=== PATIENT | male | born 1935 | race Caucasian/White ===

== ENCOUNTER 2020-09-25 13:49 | Inpatient (IN) ==
[2020-09-25] MEDS ORDERED: IOPAMIDOL 100 ML BOTTLE IV ONE (13:50)
--- NOTE | 2020-09-25 14:17 | Emergency Department Note ---
Abdominal Pain HPI General Chief Complaint: Abdominal Pain Stated Complaint: right abdominal pain Time Seen by Provider: 09/25/20 14:16 Source: patient Mode of arrival: wheelchair Limitations: no limitations History of Present Illness HPI Narrative: Narrative: Patient is an 84-year-old male with history of prior coronary artery bypass grafting and stenting as well as history of bowel obstruction who presents compl aint of right-sided abdominal pain which is persistent without any relieving or exacerbating factors. He has felt some nausea but no vomiting. He denies any trauma to the abdomen. He is extremely uncomfortable with the severe pain. He notes chronic back pain without any new back pain. He has been taking his medications including Plavix consistently. No complaint of any new pain or swelling to his legs which she notes are with some mild edema. No skin rash no fever. He was concerned maybe it was something that he had eaten, but no one else with similar symptoms. No recent travel no fever no cough. Related Data Allergies Allergy/AdvReac Type Severity Reaction Status Date / Time No Known Drug Allergies Allergy Verified 09/25/20 13:54 Review of Systems ROS ROS Narrative: Narrative: A 10 system review of systems was performed and found to be negative except as outlined above. [facility] Narrative Patient History Narrative: Narrative: Medical/Surgical/Family History All Active Problems (Updated 09/25/20 @ 19:10 by Clinton Myers MD) Acute cholecystitis (Acute) Social History Smoking Status: Former smoker Exam Narrative Narrative: Narrative: General: Alert, uncomfortable appearing male who is hard of hearing. He is speaking 8-10 word sentences without apparent dyspnea HEENT: NCAT, PERRL, Oral pharynx with moist mucus membranes. No pharyngeal erythema. No conjunctival pallor Neck: Supple, No lymphadenopathy Chest: Stable, well-healed sternotomy incision Heart: Regular rate and rhythm without murmur Lungs: Clear to auscultation bilaterally Abdomen: Soft, nondistended, with right mid and upper abdominal tenderness to palpation. No rebound tenderness. He has prior laparotomy scar which is well-healed. : No bladder distention Back: Nontraumatic, No CVA tenderness to palpation. Skin: No rash or lesion Extremity: No cyanosis, there is 1+ bilateral lower extremity edema, pulses 2+ radial Neurologic: Moves all extremities in appropriate coordinated fashion. General Limitations: no limitations Course Vital Signs Vital signs: Vital Signs Temperature 98.2 F 09/25/20 13:51 Pulse Rate 79 09/25/20 13:51 Respiratory Rate 18 09/25/20 13:51 Blood Pressure 153/80 09/25/20 13:51 Pulse Oximetry (%) 92 09/25/20 13:51 Temperature 98.2 F 09/25/20 13:51 Pulse Rate 85 09/25/20 17:31 Respiratory Rate 14 09/25/20 17:31 Blood Pressure 150/71 09/25/20 17:31 Pulse Oximetry (%) 97 09/25/20 17:31 MDM MDM Narrative Medical decision making narrative: Narrative: Patient presents with right upper quadrant abdominal pain but is with history significant for cardiac disease. His exam pointed more to intra-abdominal process but given his cardiac history I wanted to further evaluate potential of heart disease. Patient's ECG was without definite STEMI but did have some nonspecific changes and it was relieving to note his troponin was negative. I have asked for but have not been able to locate any prior ECGs to confirm chronic changes. His ECG time 1420 demonstrates sinus rhythm at a rate of 68. QRS axis is normal QRS duration is normal and narrow. There was some sinusoidal T waves in the precordial leads and T wave inversions are flattening in the lateral leads. Ultimately, patient's CT scan confirmed evidence of acute cholecystitis with gallbladder wall thickening and surrounding inflammation. There was no common bile duct dilation noted. I have spoken to Dr. Facundo Hannon who is kindly agreed to accept the patient for further admission with planned operative evaluation tomorrow. Patient is treated with Dilaudid with improvement in his pain but was requiring repeat doses of Dilaudid for comfort. No evidence of ischemic bowel, appendicitis, bowel perforation, diverticulitis or other intra-abdominal cause. Chest x-ray without acute cardiopulmonary process but evidence of prior bypass surgery. Lab Data Result diagrams: 09/25/20 15:02 09/25/20 15:02 Labs: Lab Results 09/25/20 09/25/20 09/25/20 Range/Units 15:02 15: 15: WBC 16.4 H (4.5-11.0) K/mcL RBC 5.20 (4.50-5.90) M/mcL Hgb 14.9 (13.5-16.5) g/dL Hct 46.4 (41.0-55.0) % MCV 89.2 (80.0-100.0) fL MCH 28.7 (26.0-34.0) pg MCHC 32.1 (31.0-36.0) g/dL RDW 15.5 H (11.5-14.5) % Plt Count 210 (140-440) K/mcL MPV 10.7 H (7.4-10.4) fL Neut % (Auto) 79.1 H (38.0-78.0) % Lymph % (Auto) 10.4 L (15.0-49.0) % [place] % (Auto) 10.1 (1.0-12.0) % Eos % (Auto) 0.2 (0.0-7.0) % Baso % (Auto) 0.2 (0.0-2.0) % Lymph # (Auto) 1.70 (1.50-4.80) K/mcL [place] # (Auto) 1.66 H (0.10-0.90) K/mcL Eos # (Auto) 0.04 (0.00-0.70) K/mcL Baso # (Auto) 0.04 (0.00-0.20) K/mcL Absolute Neutrophils 12.96 H (1.80-8.00) K/mcL PT 14.6 H (11.9-14.5) sec INR 1.1 (0.9-1.1) VBG Lactic Acid (0.5-2.0) mmol/L Sodium 136 (133-145) mmol/L Potassium 4.0 (3.3-5.1) mmol/L Chloride 100 (96-108) mmol/L Carbon Dioxide 25 (22-30) mmol/L Anion Gap 11.0 (8.0-16.0) BUN 8 (8-23) mg/dL Creatinine 1.0 (0.7-1.2) mg/dL POC Creatinine (0.6-1.2) mg/dL GFR Calculation 69 Glucose 155 H (70-105) mg/dL Calcium 8.8 (8.6-10.4) mg/dL Total Bilirubin 0.4 (0.1-1.0) mg/dL AST 17 (<40) U/L ALT 11 (<40) U/L Alkaline Phosphatase 80 (39-117) U/L Troponin T (<0.03) ng/mL Total Protein 7.1 (5.9-8.4) gm/dL Albumin 3.8 (3.2-5.2) gm/dL Globulin 3.3 (2.2-3.7) gm/dL Albumin/Globulin Ratio 1.2 (1.0-2.3) Lipase 20 (7-60) U/L 09/25/20 09/25/20 09/25/20 Range/Units 15:02 15:25 15:25 WBC (4.5-11.0) K/mcL RBC (4.50-5.90) M/mcL Hgb (13.5-16.5) g/dL Hct (41.0-55.0) % MCV (80.0-100.0) fL MCH (26.0-34.0) pg MCHC (31.0-36.0) g/dL RDW (11.5-14.5) % Plt Count (140-440) K/mcL MPV (7.4-10.4) fL Neut % (Auto) (38.0-78.0) % Lymph % (Auto) (15.0-49.0) % [place] % (Auto) (1.0-12.0) % Eos % (Auto) (0.0-7.0) % Baso % (Auto) (0.0-2.0) % Lymph # (Auto) (1.50-4.80) K/mcL [place] # (Auto) (0.10-0.90) K/mcL Eos # (Auto) (0.00-0.70) K/mcL Baso # (Auto) (0.00-0.20) K/mcL Absolute Neutrophils (1.80-8.00) K/mcL PT (11.9-14.5) sec INR (0.9-1.1) VBG Lactic Acid 1.6 (0.5-2.0) mmol/L Sodium (133-145) mmol/L Potassium (3.3-5.1) mmol/L Chloride (96-108) mmol/L Carbon Dioxide (22-30) mmol/L Anion Gap (8.0-16.0) BUN (8-23) mg/dL Creatinine (0.7-1.2) mg/dL POC Creatinine 1.1 (0.6-1.2) mg/dL GFR Calculation Glucose (70-105) mg/dL Calcium (8.6-10.4) mg/dL Total Bilirubin (0.1-1.0) mg/dL AST (<40) U/L ALT (<40) U/L Alkaline Phosphatase (39-117) U/L Troponin T < 0.01 (<0.03) ng/mL Total Protein (5.9-8.4) gm/dL Albumin (3.2-5.2) gm/dL Globulin (2.2-3.7) gm/dL Albumin/Globulin Ratio (1.0-2.3) Lipase (7-60) U/L Discharge Plan Patient/Caregiver Discharge Instructions Pt seen by TERRAZZO WORKER HELPER/PA only: No Clinical Impression: Acute cholecystitis Patient Disposition: Xfer As Inpt ([facility]) Condition: Fair Discharge Date/Time: 09/25/20 18:21
[2020-09-25] MEDS ORDERED: LACTATED RINGERS 1,000 ML IV ONE (14:47)
[2020-09-25] MEDS ORDERED: ONDANSETRON 4 MG/2 ML VIAL IV PRN ×2 (14:47→20:48)
[2020-09-25] MEDS: HYDROmorphone 1 MG/ML SYRINGE IV PRN ×3 (15:11→20:36)
[2020-09-25 15:37] LABS: Basophils # (Auto) 0.04 K/mcL (0.00-0.20); Basophils % (Auto) 0.2 % (0.0-2.0); Eosinophils # (Auto) 0.04 K/mcL (0.00-0.70); Eosinophils % (Auto) 0.2 % (0.0-7.0); Hematocrit 46.4 % (41.0-55.0); Hemoglobin 14.9 g/dL (13.5-16.5); Lymphocytes % (Auto) 10.4 % (15.0-49.0); Mean Cell Volume 89.2 fL (80.0-100.0); Mean Corpuscular HGB Conc 32.1 g/dL (31.0-36.0); Mean Platelet Volume 10.7 fL (7.4-10.4); Monocytes # (Auto) 1.66 K/mcL (0.10-0.90); Monocytes % (Auto) 10.1 % (1.0-12.0); Neutrophils % (Auto) 79.1 % (38.0-78.0); Platelet Count 210 K/mcL (140-440); Red Cell Distribution Width 15.5 % (11.5-14.5); WBC 16.4 K/mcL (4.5-11.0)
[2020-09-25 15:41] LABS: POC Creatinine 1.1 mg/dL (0.6-1.2)
[2020-09-25 15:50] LABS: INR 1.1 (0.9-1.1); Prothrombin Time 14.6 sec (11.9-14.5)
[2020-09-25 15:54] LABS: ALT/SGPT 11 U/L (<40); AST/SGOT 17 U/L (<40); Albumin 3.8 gm/dL (3.2-5.2); Albumin/Globulin Ratio 1.2 (1.0-2.3); Alkaline Phosphatase 80 U/L (39-117); Bilirubin,Total 0.4 mg/dL (0.1-1.0); Blood Urea Nitrogen 8 mg/dL (8-23); Calcium 8.8 mg/dL (8.6-10.4); Carbon Dioxide 25 mmol/L (22-30); Chloride 100 mmol/L (96-108); Globulin 3.3 gm/dL (2.2-3.7); Glomerular Filtration Rate 69; Glucose 155 mg/dL (70-105)
[2020-09-25] MEDS ORDERED: HYDROmorphone 1 MG/ML SYRINGE IV ONE (17:22)
[2020-09-25] MEDS ORDERED: morphine 2 MG/ML VIAL IV PRN (18:47)
[2020-09-25] MEDS ORDERED: morphine 2 MG/ML VIAL ONE (19:03)
[2020-09-25] MEDS ORDERED: PIPERACILLIN SODIUM/TAZOBACTAM 4.5 GM in DEXTROSE 5% IN WATER 50 ML IV SCH (19:15)
--- NOTE | 2020-09-25 20:08 | XRay Report ---
HISTORY: Right-sided abdominal pain, coronary artery disease, prior coronary bypass surgery FINDINGS: There is a band of discoid atelectasis above the left diaphragm. The lungs are otherwise clear. The heart size is normal. There has been a prior sternotomy with coronary bypass. No congestive heart failure or pleural effusion are present. There is no free intra-abdominal air. IMPRESSION: Small band of discoid atelectasis in the left lower lobe and no acute abnormality Interpreted and Authenticated by: Mauricio Choi 09/25/20
--- NOTE | 2020-09-25 20:19 | Cat Scan Report ---
History: Right upper quadrant pain, prior removal of scar tissue from the abdomen for previous bowel obstruction TECHNIQUE: The patient was imaged following injection of intravenous nonionic contrast scanning during the portal venous phase from the diaphragm through the symphysis pubis. Sagittal and coronal reformats were created. The radiation exposure was limited using dose reduction technology. FINDINGS: There is a small band of discoid atelectasis adjacent left diaphragm. The lung bases are otherwise clear. The liver is normal in size and homogeneous. The gallbladder wall is thickened and inflamed. It ranges from 3 to 7 mm in thickness. There is stranding of the surrounding fat. No calcified stones are present within the lumen. There may be some sludge. The intra and extrahepatic bile ducts are normal in caliber. Common bile duct measures 6.5 mm. There is no evidence of a stone or mass in the distal duct. The ampulla is normal. The pancreas is normal without evidence of a mass or inflammation. Pancreatic duct is nondilated. Spleen is normal in size and homogeneous. The adrenals are normal. There is a 2 mm calcification centrally in the right kidney. This appears to be a plaque in the renal artery. There are plaques at the origins of both renal arteries and plaque in the aorta. There is mild ectasia of the mid and distal abdominal aorta. Kidneys are otherwise normal. The bowel gas pattern is normal. There is no evidence of obstruction or ileus. The appendix is noninflamed. There are a few noninflamed diverticula in the sigmoid colon. Prostate is mildly enlarged. Seminal vesicles are plump and symmetric. Urinary bladder is unopacified but appears normal. There is disc space narrowing and arthritis at L4-5 and L5-S1. IMPRESSION: Acute cholecystitis with surrounding inflammation but no abscess. Normal caliber bile ducts without evidence of a stone in the duct Dr. Myers was called with the report Interpreted and Authenticated by: Mauricio Choi 09/25/20
--- NOTE | 2020-09-25 20:27 | General Surg History&Physical ---
HPI History of Present Illness Patient information: Note initiated : 09/25/20 at 8:21 pm Service Date, if different from initiated Date: [] Patient: Evelyn Christy a 84 y/o M admitted on 09/25/20 for right abdominal pain. Chief Complaint: [] Chief complaint: Acute right upper quadrant pain with nausea History of present illness: Mr. Christy is a 84 year old M admitted for evaluation of acute right upper quadrant pain with nausea. The patient states that on Saturday of this past week he developed severe pain in his right upper quadrant with nausea but did not have any vomiting. He had continued pain over the weekend and it increased each day. He was seen in the emergency room earlier today with acute severe pain radiating through to his back. Labs were unremarkable except for white blood count of 16.4. Liver panel including bilirubin is normal. Evaluation for acute myocardial ischemia is negative with normal troponins and no acute EKG changes. Patient is admitted and will have open cholecystectomy tomorrow. Patient has significant history of exploratory laparotomy for bowel obstruction in 2019. Postoperatively he had an acute dehiscence and he will then by secondary intention and with wound VAC therapy. He has a large incisional hernia in that area. He also has chronic obstructive sleep apnea and chronic obstructive lung disease and requires continue with CPAP Constitutional Constitutional: Present anorexia, fatigue, malaise, stops breathing during sleep and weakness EENT Eyes: Present decreased night vision Ears: Present decreased hearing Nose, mouth and throat: Present abnormal hearing Cardiovascular Cardiovascular: Present dyspnea Respiratory Respiratory: Present dyspnea on exertion Gastrointestinal Gastrointestinal: Present abdominal pain, cramping and nausea Musculoskeletal Musculoskeletal: Present arthralgias, myalgias and radiating pain into limb (Right-sided sciatica) Integumentary Integumentary: Absent changing lesions, new lesions, pruritus and rash Neurological Neurological: Absent dizziness and focal weakness Psychiatric Psychiatric: Present abnormal sleep pattern and memory loss Endocrine Endocrine: Absent palpitations Hematologic/Lymphatic Hematologic/Lymphatic: Absent easy bleeding, easy bruising and lymphadenopathy Allergic/Immunologic Allergic/Immunologic: Absent tongue swelling, throat swelling, uticaria, wheezing and lip swelling PFSH PFSH All Active Problems (Updated 09/25/20 @ 20:47 by Tyrel Hannon MD) Coronary artery disease (Acute) Cholecystitis, acute with cholelithiasis (Acute) Chronic intermittent hypoxia with obstructive sleep apnea (Acute) Chronic obstructive lung disease (Acute) Acute cholecystitis (Acute) Medical History (Updated 09/25/20 @ 20:47 by Tyrel Hannon MD) Coronary artery disease Coronary artery disease involving coronary bypass graft History of coronary artery disease Perioperative dehiscence of abdominal wound with evisceration Surgical History (Updated 09/25/20 @ 20:40 by Tyrel Hannon MD) Status post exploratory laparotomy Family History (Updated 09/25/20 @ 20:42 by Tyrel Hannon MD) Mother No problems noted. Father Cancer of intestinal tract Brother Kidney failure Social History (Updated 09/25/20 @ 20:43 by Tyrel Hannon MD) household members: significant other housing: house lives independently: Yes occupational status: retired smoking status: Former smoker alcohol intake frequency: does not drink substance use type: does not use MEDS/ALLERGIES Home Medications and Allergies Allergies Allergy/AdvReac Type Severity Reaction Status Date / Time No Known Drug Allergies Allergy Verified 09/25/20 13:54 Physical Examination Vital Signs Vital signs: Temp Pulse Resp BP Pulse Ox 98.4 F 92 H 18 132/69 91 09/25/20 19:00 09/25/20 19:00 09/25/20 19:00 09/25/20 19:00 09/25/20 19:00 General physical appearance General physical exam: well developed, well nourished, moderate distress and moderate pain Eyes Eye exam: PERRL and normal ocular movement ENT ENT exam: normal nares, normal mucosa and decreased hearing Head Head exam IM: Present atraumatic, normal inspection and normocephalic Neck Neck exam: no masses, no bruits, trachea midline, no lymphadenopathy and no venous distension Cardiovascular Cardiovascular exam IM: Present normal rate and rhythm; Absent tachycardia Respiratory Respiratory exam: normal expansion, normal respiratory effort and clear to auscultation Abdomen Abdomen: Present tender (Right subcostal and epigastric tenderness with guarding), surgical scars, guarding, rebound and distended Hernia: Present incisional (Large upper midline incisional hernia) Integumentary Integumentary: Present no rash, no growths and no abnormal pigmentation Neurologic Neurologic: Present normal coordination and normal sensation Musculoskeletal Musculoskeletal: Present normal gait and normal posture Psychiatric Psychiatric: Present oriented to time, oriented to person, oriented to place, speech is normal and memory intact Results Labs Result diagrams: 09/25/20 15:02 09/25/20 15:02 Labs: Abnormal lab results 09/25/20 09/25/20 09/25/20 Range/Units 15:02 15:02 15:02 WBC 16.4 H (4.5-11.0) K/mcL RDW 15.5 H (11.5-14.5) % MPV 10.7 H (7.4-10.4) fL Neut % (Auto) 79.1 H (38.0-78.0) % Lymph % (Auto) 10.4 L (15.0-49.0) % [place] # (Auto) 1.66 H (0.10-0.90) K/mcL Absolute Neutrophils 12.96 H (1.80-8.00) K/mcL PT 14.6 H (11.9-14.5) sec Glucose 155 H (70-105) mg/dL Diabetes panel 09/25/20 Range/Units 15:02 Sodium 136 (133-145) mmol/L Potassium 4.0 (3.3-5.1) mmol/L Chloride 100 (96-108) mmol/L Carbon Dioxide 25 (22-30) mmol/L BUN 8 (8-23) mg/dL Creatinine 1.0 (0.7-1.2) mg/dL Glucose 155 H (70-105) mg/dL Calcium 8.8 (8.6-10.4) mg/dL AST 17 (<40) U/L ALT 11 (<40) U/L Alkaline Phosphatase 80 (39-117) U/L Total Protein 7.1 (5.9-8.4) gm/dL Albumin 3.8 (3.2-5.2) gm/dL Calcium panel 09/25/20 Range/Units 15:02 Calcium 8.8 (8.6-10.4) mg/dL Albumin 3.8 (3.2-5.2) gm/dL Pituitary panel 09/25/20 Range/Units 15:02 Sodium 136 (133-145) mmol/L Potassium 4.0 (3.3-5.1) mmol/L Chloride 100 (96-108) mmol/L Carbon Dioxide 25 (22-30) mmol/L BUN 8 (8-23) mg/dL Creatinine 1.0 (0.7-1.2) mg/dL Glucose 155 H (70-105) mg/dL Calcium 8.8 (8.6-10.4) mg/dL Adrenal panel 09/25/20 Range/Units 15:02 Sodium 136 (133-145) mmol/L Potassium 4.0 (3.3-5.1) mmol/L Chloride 100 (96-108) mmol/L Carbon Dioxide 25 (22-30) mmol/L BUN 8 (8-23) mg/dL Creatinine 1.0 (0.7-1.2) mg/dL Glucose 155 H (70-105) mg/dL Calcium 8.8 (8.6-10.4) mg/dL Total Bilirubin 0.4 (0.1-1.0) mg/dL AST 17 (<40) U/L ALT 11 (<40) U/L Alkaline Phosphatase 80 (39-117) U/L Total Protein 7.1 (5.9-8.4) gm/dL Albumin 3.8 (3.2-5.2) gm/dL All other labs normal. A/P Assessment and plan (1) Cholecystitis, acute with cholelithiasis: Status: Acute Qualifiers: Biliary obstruction: without biliary obstruction Qualified Code(s): K80.00 - Calculus of gallbladder with acute cholecystitis without obstruction (2) Chronic intermittent hypoxia with obstructive sleep apnea: Status: Acute (3) Chronic obstructive lung disease: Status: Acute Qualifiers: COPD type: emphysema Emphysema type: panlobular Qualified Code(s): J43.1 - Panlobular emphysema (4) Coronary artery disease: Status: Acute Qualifiers: Coronary Disease-Associated Artery/Lesion type: [place] artery [place] vs. transplanted heart: [place] heart Associated angina: without angina Qualified Code(s): I25.10 - Atherosclerotic heart disease of [place] coronary artery without angina pectoris Narrative A/P Narrative: Patient is counseled for open cholecystectomy because of large incisional hernia and extensive scarring in the upper midline Zosyn 3.375 g IV every 6 Continue CPAP therapy Time Spent With Patient Time: Total time spent is greater than 50% in coordination of care (as documented) at patient's floor/unit and/or counseling patient:
[2020-09-25] MEDS: KETOROLAC 15 MG/ML VIAL IV SCH (20:30)
[2020-09-25] MEDS: ACETAMINOPHEN 1,000 MG/100 ML BAG IV PRN (20:30)
[2020-09-25] MEDS: 0.9 % SODIUM CHLORIDE 1,000 ML IV SCH (20:31)
[2020-09-25] MEDS ORDERED: PROMETHAZINE 25 MG/ML VIAL IV PRN (20:48)
[2020-09-25] MEDS ORDERED: PIPERACILLIN SODIUM/TAZOBACTAM 3.375 GM in DEXTROSE 5% IN WATER 50 ML IV SCH ×2 (21:00)
[2020-09-25] MEDS: SENNOSIDES 1 TABLET PO SCH (21:59)
[2020-09-25] MEDS: DOCUSATE SODIUM 100 MG CAPSULE PO SCH (21:59)
[2020-09-25] MEDS: 0.9 % SODIUM CHLORIDE 10 ML SYRINGE IV SCH (22:00)
[2020-09-26] MEDS: PIPERACILLIN SODIUM/TAZOBACTAM 3.375 GM in DEXTROSE 5% IN WATER 50 ML IV SCH ×5 (00:07→23:41)
[2020-09-26] MEDS: HYDROmorphone 1 MG/ML SYRINGE IV PRN ×6 (00:17→17:25)
[2020-09-26] MEDS: FAMOTIDINE/PF 20 MG/2 ML VIAL IV SCH ×3 (00:17→21:25)
[2020-09-26] MEDS: KETOROLAC 15 MG/ML VIAL IV SCH (03:03)
[2020-09-26] MEDS: ACETAMINOPHEN 1,000 MG/100 ML BAG IV PRN ×2 (04:13→12:04)
[2020-09-26] MEDS: 0.9 % SODIUM CHLORIDE 10 ML SYRINGE IV SCH ×4 (04:55→22:30)
[2020-09-26 07:00] LABS: Basophils # (Auto) 0.03 K/mcL (0.00-0.20); Basophils % (Auto) 0.1 % (0.0-2.0); Eosinophils # (Auto) 0.01 K/mcL (0.00-0.70); Eosinophils % (Auto) 0 % (0.0-7.0); Hematocrit 46.6 % (41.0-55.0); Hemoglobin 14.8 g/dL (13.5-16.5); Lymphocytes # (Auto) 1.51 K/mcL (1.50-4.80); Lymphocytes % (Auto) 6.5 % (15.0-49.0); Mean Cell Volume 89.8 fL (80.0-100.0); Mean Corpuscular HGB Conc 31.8 g/dL (31.0-36.0); Mean Platelet Volume 10.4 fL (7.4-10.4); Monocytes # (Auto) 2.27 K/mcL (0.10-0.90); Monocytes % (Auto) 9.7 % (1.0-12.0); Neutrophils % (Auto) 83.7 % (38.0-78.0); Platelet Count 189 K/mcL (140-440); RBC 5.19 M/mcL (4.50-5.90); Red Cell Distribution Width 15.7 % (11.5-14.5); WBC 23.4 K/mcL (4.5-11.0)
[2020-09-26 07:15] LABS: ALT/SGPT 18 U/L (<40); AST/SGOT 31 U/L (<40); Albumin 3.3 gm/dL (3.2-5.2); Albumin/Globulin Ratio 1.1 (1.0-2.3); Alkaline Phosphatase 75 U/L (39-117); Bilirubin,Direct 0.4 mg/dL (<0.3); Bilirubin,Total 1.3 mg/dL (0.1-1.0); Blood Urea Nitrogen 12 mg/dL (8-23); Calcium 8.5 mg/dL (8.6-10.4); Carbon Dioxide 26 mmol/L (22-30); Chloride 99 mmol/L (96-108); Globulin 2.9 gm/dL (2.2-3.7); Glomerular Filtration Rate 62; Glucose 85 mg/dL (70-105); Lactate Dehydrogenase 261 U/L (135-225); Phosphorous 3.3 mg/dL (2.5-4.5); Triglycerides 46 mg/dL (<150); Uric Acid 6.1 mg/dL (2.5-8.0)
[2020-09-26] MEDS: DOCUSATE SODIUM 100 MG CAPSULE PO SCH ×2 (07:51→21:25)
[2020-09-26] MEDS: 0.9 % SODIUM CHLORIDE 1,000 ML IV SCH ×2 (08:33→17:24)
[2020-09-26] MEDS ORDERED: IPRATROPIUM/ALBUTEROL 3 ML AMPUL.NEB NEB PRN ×2 (09:00→14:25)
[2020-09-26] MEDS ORDERED: SCOPOLAMINE 1 PATCH PATCH TOPICAL PRN (09:00)
[2020-09-26] MEDS ORDERED: PROPOFOL 200 MG/20 ML VIAL IV ONE (13:20)
[2020-09-26] MEDS ORDERED: DEXAMETHASONE 10 MG/ML VIAL ONE (13:20)
[2020-09-26] MEDS ORDERED: ePHEDrine 50 MG/ML AMPUL IV ONE (13:20)
[2020-09-26] MEDS ORDERED: ROCURONIUM 10 MG/ML ML IV ONE (13:20)
[2020-09-26] MEDS ORDERED: LIDOCAINE HCL/PF 100 MG/5 ML SYRINGE IV ONE (13:20)
[2020-09-26] MEDS ORDERED: KETAMINE 50 MG/ML ML ONE (13:20)
[2020-09-26] MEDS ORDERED: PHENYLEPHRINE 10 MG/ML VIAL ONE (13:20)
[2020-09-26] MEDS ORDERED: PROMETHAZINE 25 MG/ML VIAL IM PRN (14:25)
[2020-09-26] MEDS ORDERED: MEPERIDINE 25 MG/ML VIAL IV PRN (14:25)
[2020-09-26] MEDS ORDERED: KETOROLAC 15 MG/ML VIAL IV PRN (14:25)
[2020-09-26] MEDS ORDERED: ACETAMINOPHEN 1,000 MG/100 ML BAG IV ONE (14:25)
[2020-09-26] MEDS ORDERED: MEPERIDINE 50 MG/ML VIAL IM PRN (14:25)
[2020-09-26] MEDS ORDERED: fentaNYL 100 MCG/2 ML VIAL IV PRN (14:25)
[2020-09-26] MEDS ORDERED: LACTATED RINGERS 1,000 ML IV SCH (14:30)
--- NOTE | 2020-09-26 14:40 | Brief Operative Note ---
Brief Operative Note Date of procedure: 09/26/20 Pre-op diagnosis: acute cholecystitis Post-op diagnosis: other (acute gangrenius cholecystitis with cholelithiasis) Procedure: open cholecystectomy Grafts/Implants: No (yvette drain x1) Anesthesia: GETA Findings: acute severe gangrenous cholecystitis Complications: none Surgeon: Tyrel Hannon Estimated blood loss (cc): 30 Specimens Removed/Pathology: other (gallbladder) Condition: stable Disposition: PACU
[2020-09-26] MEDS ORDERED: busPIRone 5 MG TABLET PO PRN (14:52)
[2020-09-26] MEDS: traMADol 50 MG TABLET PO SCH ×2 (17:25→21:25)
[2020-09-26] MEDS: SENNOSIDES 1 TABLET PO SCH (21:25)
[2020-09-26] MEDS: traZODone HCL 50 MG TABLET PO SCH (21:25)
[2020-09-26] MEDS: FEXOFENADINE 180 MG TABLET PO SCH (21:27)
[2020-09-27] MEDS: ACETAMINOPHEN 1,000 MG/100 ML BAG IV PRN (01:54)
[2020-09-27] MEDS: HYDROmorphone 1 MG/ML SYRINGE IV PRN ×5 (04:32→21:02)
[2020-09-27] MEDS: 0.9 % SODIUM CHLORIDE 1,000 ML IV SCH ×3 (04:36→16:43)
[2020-09-27] MEDS: PIPERACILLIN SODIUM/TAZOBACTAM 3.375 GM in DEXTROSE 5% IN WATER 50 ML IV SCH ×3 (05:34→17:33)
[2020-09-27] MEDS: 0.9 % SODIUM CHLORIDE 10 ML SYRINGE IV SCH ×3 (05:35→20:58)
[2020-09-27 07:27] LABS: Basophils # (Auto) 0.03 K/mcL (0.00-0.20); Basophils % (Auto) 0.1 % (0.0-2.0); Eosinophils # (Auto) 0 K/mcL (0.00-0.70); Eosinophils % (Auto) 0 % (0.0-7.0); Hemoglobin 13.1 g/dL (13.5-16.5); Lymphocytes # (Auto) 1.24 K/mcL (1.50-4.80); Lymphocytes % (Auto) 5.6 % (15.0-49.0); Mean Cell Volume 89.9 fL (80.0-100.0); Mean Corpuscular HGB Conc 31.2 g/dL (31.0-36.0); Mean Platelet Volume 11.1 fL (7.4-10.4); Monocytes # (Auto) 1.66 K/mcL (0.10-0.90); Monocytes % (Auto) 7.5 % (1.0-12.0); Neutrophils % (Auto) 86.8 % (38.0-78.0); Platelet Count 194 K/mcL (140-440); RBC 4.67 M/mcL (4.50-5.90)
[2020-09-27] MEDS ORDERED: PANTOPRAZOLE 40 MG TABLET PO SCH (07:30)
[2020-09-27 08:08] LABS: ALT/SGPT 19 U/L (<40); AST/SGOT 23 U/L (<40); Albumin 3.1 gm/dL (3.2-5.2); Alkaline Phosphatase 64 U/L (39-117); Bilirubin,Direct 0.3 mg/dL (<0.3); Bilirubin,Total 0.6 mg/dL (0.1-1.0); Blood Urea Nitrogen 17 mg/dL (8-23); Calcium 8.3 mg/dL (8.6-10.4); Carbon Dioxide 27 mmol/L (22-30); Chloride 100 mmol/L (96-108); Globulin 3.1 gm/dL (2.2-3.7); Glomerular Filtration Rate 46; Glucose 112 mg/dL (70-105); Lactate Dehydrogenase 161 U/L (135-225); Phosphorous 1.6 mg/dL (2.5-4.5); Triglycerides 56 mg/dL (<150); Uric Acid 5.1 mg/dL (2.5-8.0)
[2020-09-27] MEDS: traMADol 50 MG TABLET PO SCH ×4 (08:47→20:57)
[2020-09-27] MEDS: DOCUSATE SODIUM 100 MG CAPSULE PO SCH ×2 (08:47→20:57)
[2020-09-27] MEDS: MONTELUKAST 10 MG TABLET PO SCH (08:47)
[2020-09-27] MEDS: LISINOPRIL 5 MG TABLET PO SCH (08:47)
[2020-09-27] MEDS: TAMSULOSIN 0.4 MG CAPSULE PO SCH (08:47)
[2020-09-27] MEDS: BACLOFEN 10 MG TABLET PO SCH (08:47)
[2020-09-27] MEDS: FAMOTIDINE/PF 20 MG/2 ML VIAL IV SCH ×2 (08:48→20:57)
[2020-09-27] MEDS: FEXOFENADINE 180 MG TABLET PO SCH (08:49)
[2020-09-27] MEDS ORDERED: FEXOFENADINE 180 MG TABLET PO SCH (09:00)
--- NOTE | 2020-09-27 11:50 | Surgical Pathology Report ---
Histology Microscopic Diagnosis Specimen A- GALLBLADDER, CHOLECYSTECTOMY: --- ACUTE NECROTIZING CHOLECYSTITIS WITH CHOLELITHIASIS. (RLF) Procedural Impression Cholecystitis, cholelithiasis. Gross Description Received in formalin labeled gallbladder, is a purple-whelan gallbladder measuring 12.6 x 6.2 x 3.2 cm. The specimen contains multiple stones from less than 0.1 to 0.6 cm. The mucosa is green mcdaniel and the wall is up to 0.7 cm thick. Tanning Wheel Operator sections are submitted in two cassettes. ([facility]) Electronically Signed Sravani Robb MD, FCAP Electronically Signed 09/27/2020 11:49
--- NOTE | 2020-09-27 14:35 | General Surgery Progress Note ---
SUBJECTIVE Subjective Patient information: Note initiated : 09/27/20 at 2:31 pm Service Date, if different from initiated Date: [] Patient: Evelyn Christy 84 y/o M admitted on 09/25/20 for right abdominal pain. Chief Complaint: [] Principal diagnosis: Acute gangrenous cholecystitis Interval history: Patient is doing much better his pain is controlled. His nausea has resolved. MARGARITA drain shows bloody drainage with slight bile tint. Incision is unremarkable. Constitutional Vitals: Vital Signs Temp Pulse Resp BP Pulse Ox 98.8 F 82 20 121/67 94 09/27/20 12:00 09/27/20 12:00 09/27/20 12:00 09/27/20 12:00 09/27/20 12:00 Period Temp Pulse Resp BP Sys/[place] Pulse Ox Last 24 Hr 97.6 F-98.9 F 80-96 13-26 86-132/46-67 88-99 Intake and Output 09/27/20 09/27/20 09/27/20 05:59 13:59 21:59 Intake Total 1300 50 Output Total 110 20 Balance 1190 30 Intake & Output: Intake & Output 09/27/20 09/27/20 09/27/20 05:59 13:59 21:59 Intake Total 1300 50 Output Total 110 20 Balance 1190 30 Intake: IV 1200 50 Sodium Chloride 0.9% 1,000 ml @ 1000 100 mls/hr IV .Q10H EMIL Rx#: [id number] Zosyn 3.375 gm In Dextrose 5% 100 50 in Water 50 ml @ 100 mls/hr IV Q6H MEIL Rx#:[id number] Oral 100 Output: Drainage 20 MARGARITA Drain 20 Drainage 110 MARGARITA Drain 110 Other: # Voids 1 ENT ENT exam: Present mucous membranes moist, normal exam and normal oropharynx Neck Neck exam: Present full ROM; Absent tenderness and thyromegaly Respiratory Respiratory exam: Present normal respiratory exam and CTAB; Absent rales, rhonchi and wheezes Cardiovascular Cardiovascular exam: Present normal rate and rhythm, RRR, +S1 and +S2 GI/Abdominal GI/Abdominal exam: Present normal bowel sounds, soft and distended (Mild distention) Extremities Exam Extremities exam: Present full ROM and neurovascular intact; Absent pedal edema Neurological Exam Neurological exam: Present alert, normal gait and oriented X3 Psychiatric Psychiatric exam: Present normal affect and normal mood A/P Assessment and plan (1) Acute gangrenous cholecystitis: Status: Acute (2) Coronary artery disease: Status: Acute Qualifiers: Coronary Disease-Associated Artery/Lesion type: [place] artery [place] vs. transplanted heart: [place] heart Associated angina: without angina Qualified Code(s): I25.10 - Atherosclerotic heart disease of [place] coronary artery without angina pectoris (3) Chronic intermittent hypoxia with obstructive sleep apnea: Status: Acute (4) Chronic obstructive lung disease: Status: Acute Qualifiers: COPD type: emphysema Emphysema type: panlobular Qualified Code(s): J43.1 - Panlobular emphysema Narrative A/P Narrative: Patient will be continued on antibiotics Check CBC and inpatient panel in the morning Time Spent With Patient Time: Total time spent is greater than 50% in coordination of care (as documented) at patient's floor/unit and/or counseling patient:
[2020-09-27] MEDS: traZODone HCL 50 MG TABLET PO SCH (20:57)
[2020-09-27] MEDS: SENNOSIDES 1 TABLET PO SCH (20:57)
[2020-09-28] MEDS: PIPERACILLIN SODIUM/TAZOBACTAM 3.375 GM in DEXTROSE 5% IN WATER 50 ML IV SCH ×3 (00:05→11:42)
[2020-09-28] MEDS: 0.9 % SODIUM CHLORIDE 1,000 ML IV SCH ×2 (00:49→03:40)
[2020-09-28] MEDS: HYDROmorphone 1 MG/ML SYRINGE IV PRN ×5 (00:50→11:42)
[2020-09-28] MEDS: 0.9 % SODIUM CHLORIDE 10 ML SYRINGE IV SCH ×2 (04:38→13:32)
[2020-09-28 07:45] LABS: Basophils # (Auto) 0.01 K/mcL (0.00-0.20); Basophils % (Auto) 0.1 % (0.0-2.0); Eosinophils # (Auto) 0.03 K/mcL (0.00-0.70); Eosinophils % (Auto) 0.3 % (0.0-7.0); Hematocrit 40.2 % (41.0-55.0); Hemoglobin 12.7 g/dL (13.5-16.5); Lymphocytes # (Auto) 1.29 K/mcL (1.50-4.80); Lymphocytes % (Auto) 12.7 % (15.0-49.0); Mean Cell Volume 90.3 fL (80.0-100.0); Mean Corpuscular HGB Conc 31.6 g/dL (31.0-36.0); Monocytes # (Auto) 0.89 K/mcL (0.10-0.90); Monocytes % (Auto) 8.8 % (1.0-12.0); Neutrophils % (Auto) 78.1 % (38.0-78.0); Platelet Count 200 K/mcL (140-440); RBC 4.45 M/mcL (4.50-5.90); Red Cell Distribution Width 16.6 % (11.5-14.5); WBC 10.2 K/mcL (4.5-11.0)
[2020-09-28 08:15] LABS: ALT/SGPT 109 U/L (<40); AST/SGOT 189 U/L (<40); Albumin 3.3 gm/dL (3.2-5.2); Albumin/Globulin Ratio 1.1 (1.0-2.3); Alkaline Phosphatase 128 U/L (39-117); Bilirubin,Direct 0.4 mg/dL (<0.3); Bilirubin,Total 0.7 mg/dL (0.1-1.0); Blood Urea Nitrogen 18 mg/dL (8-23); Calcium 8.4 mg/dL (8.6-10.4); Carbon Dioxide 27 mmol/L (22-30); Chloride 106 mmol/L (96-108); Globulin 2.9 gm/dL (2.2-3.7); Glomerular Filtration Rate 56; Glucose 96 mg/dL (70-105); Lactate Dehydrogenase 240 U/L (135-225); Phosphorous 1.5 mg/dL (2.5-4.5); Triglycerides 124 mg/dL (<150); Uric Acid 4.9 mg/dL (2.5-8.0)
[2020-09-28] MEDS: FEXOFENADINE 180 MG TABLET PO SCH (08:38)
[2020-09-28] MEDS: DOCUSATE SODIUM 100 MG CAPSULE PO SCH (08:38)
[2020-09-28] MEDS: TAMSULOSIN 0.4 MG CAPSULE PO SCH (08:38)
[2020-09-28] MEDS: BACLOFEN 10 MG TABLET PO SCH (08:39)
[2020-09-28] MEDS: traMADol 50 MG TABLET PO SCH ×2 (08:39→13:31)
[2020-09-28] MEDS: FAMOTIDINE/PF 20 MG/2 ML VIAL IV SCH (08:39)
[2020-09-28] MEDS: MONTELUKAST 10 MG TABLET PO SCH (08:39)
[2020-09-28] MEDS: LISINOPRIL 5 MG TABLET PO SCH (08:40)
--- NOTE | 2020-09-28 11:55 | Operative Note ---
DATE OF OPERATION: 09/26/2020 PREOPERATIVE DIAGNOSIS: Acute cholecystitis. POSTOPERATIVE DIAGNOSIS: Acute gangrenous cholecystitis with cholelithiasis. PROCEDURE: Open cholecystectomy. SURGEON: Tyrel Hannon M.D. FINDINGS: Acute severe gangrenous cholecystitis. DESCRIPTION OF PROCEDURE: Under general anesthesia, the patient's abdomen was prepped and draped in a sterile field. A lateral right subcostal incision was made and extended into the peritoneal cavity. A very dark red and green engorged, thickened gallbladder was encountered. It was aspirated of 30 mL of bile. A Padma retractor was placed. Acute inflammatory adhesions were dissected using finger dissection. A very large long gallbladder was able to be palpated down to the cystic duct, common bile duct junction. Incision was made in the serosa. Using electrocautery and blunt dissection, the gallbladder was from the infrahepatic bed. This was continued down to the cystic duct. Cystic artery was identified with two small branches. Each branch was clipped with four clips and divided on the wall of the gallbladder. Cystic duct was clamped at its junction with the gallbladder. The gallbladder was excised. Cystic duct was tied off with two sutures of 2-0 silk and clipped with two large clips. Irrigation was carried out. There did not appear to be any bile leak. There was no bleeding except for slight oozing from the inflamed omentum. Hemostasis of this was achieved with electrocautery. A Junaid drain was placed in the subhepatic space along the course of the gallbladder bed and brought out through a lateral incision. Irrigation was carried out once more. The anterior and posterior rectus fascia were closed in two layers using 0 Prolene. Subcutaneous tissue was closed with running 2-0 Monocryl. Skin was closed with thelma. The drain was secured with 2-0 nylon. Tegaderm dressing was placed. The patient tolerated the procedure well. He was awakened uneventfully, extubated, and transferred to the postanesthetic care unit in satisfactory condition. LCS:willy Job ID: [id number] Doc ID: [id number] Tyrel Hannon M.D.
--- NOTE | 2020-09-28 12:28 | Discharge Summary ---
Discharge Provider Provider Patient information: Note initiated : 09/28/20 at 12:26 pm Service Date, if different from initiated Date: [] Patient: Evelyn Christy 84 y/o M admitted on 09/25/20 for right abdominal pain. Chief Complaint: [] Date of admission: 09/25/20 20:49 Discharge date: 09/28/20 Primary care physician: Hui Roca Admitting clinician: Tyerl Hannon Attending physician on admission: Tyrel Hannon Consults: 09/25/20 Consult to Physician [CONS] Stat Comment: Consulting Provider: Tyrel Hannon Reason For Exam: Physician to Consult Attending physician on discharge: Tyrel Hannon Discharging clinician: Tyrel Hannon COURSE Hospital Course Hospital course: 84-year-old male who presented to the emergency room with 3-day history of acute severe abdominal pain. He had exquisite tenderness in the right subcostal region with CT evidence of acute cholecystitis. He underwent open cholecystectomy because of previous infections and wound dehiscence in the upper abdomen. He had acute necrotizing gangrenous cholecystitis. We gallbladder was removed by primarily blunt dissection. Because of the inflammation he was drained. His white count was initially in the 22,000 range but is now down to 10.2. His LFTs are normal. He developed some bilious drainage yesterday which suggest that he has an accessory duct leak or leak from the hepatic bed with a blunt dissection was carried. The drain will be left in place until the ceases. The patient is asymptomatic except for mild pain. He denies nausea and he is having flatus and bowel movements. His bilirubin is 0.7, white blood count 10.2, hemoglobin 12.7, hematocrit 40.2.. Patient is stable for discharge home Discharge diagnosis: AcuteAppetizing gangrenous cholecystitis Secondary discharge diagnosis: Chronic obstructive lung disease Chronic obstructive sleep apnea History of coronary artery disease Reason for admission: Acute cholecystitis Procedures: Open cholecystectomy Pertinent studies/significant findings: CT of abdomen and pelvis with contrast Complications: Mild postprocedural bowel leak Time Spent with Patient Time attestation: Total time spent providing and/or coordinating discharge services: Physical Examination Vital Signs Vital signs: Temp Pulse Resp BP Pulse Ox 97.9 F 77 20 127/75 93 09/28/20 07:55 09/28/20 07:55 09/28/20 07:55 09/28/20 07:55 09/28/20 07:55 General physical appearance General physical exam: well developed, well nourished, moderate distress and moderate pain Eyes Eye exam: PERRL and normal ocular movement ENT ENT exam: normal nares, normal mucosa and decreased hearing Head Head exam IM: Present atraumatic, normal inspection and normocephalic Cardiovascular Cardiovascular exam IM: Present normal rate and rhythm; Absent tachycardia Respiratory Respiratory exam: normal expansion, normal respiratory effort and clear to auscultation Abdomen Abdomen: Present tender (Right subcostal and epigastric tenderness with guarding), surgical scars, guarding, rebound and distended Hernia: Present incisional (Large upper midline incisional hernia) Integumentary Integumentary: Present no rash, no growths and no abnormal pigmentation Neurologic Neurologic: Present normal coordination and normal sensation Musculoskeletal Musculoskeletal: Present normal gait and normal posture Psychiatric Psychiatric: Present oriented to time, oriented to person, oriented to place, speech is normal and memory intact Discharge Plan Patient/Caregiver Discharge Instructions Activity: increase activity as tolerated Diet: Low Fat Instructions: Open Cholecystectomy (DC) Prescriptions: New oxycodone-acetaminophen [Endocet] 10-325 mg Tablet 1 tab PO Q4H PRN (Reason: Pain) Qty: 40 RF: 0 levofloxacin [levofloxacin] 750 MG tablet 750 mg PO DAILY Qty: 7 RF: 0 oxycodone-acetaminophen [Endocet] 10-325 mg Tablet 1 tab PO Q4H PRN (Reason: Pain) Qty: 40 RF: 0 levofloxacin [levofloxacin] 750 MG tablet 750 mg PO DAILY Qty: 7 RF: 0 Continued xmnddpmlvjni-dbhbjipv-hgscco Tablet 1 tab PO QDAY RF: 0 aspirin 81 mg Tablet 81 mg PO QDAY RF: 0 btotbhmubfg-O2-Heirvdrxg serr [Osteo Bi-Flex (5-Loxin)] 1,500-400-100 mg-unit-mg Tablet 1 tab PO DAILY RF: 0 buspirone 5 mg Tablet 5 mg PO TID PRN (Reason: Anxiety) RF: 0 trazodone 50 mg Tablet 50 mg PO QHS RF: 0 potassium chloride 10 mEq Tablet Extended Release 10 meq PO QDAY RF: 0 clopidogrel 75 mg Tablet 75 mg PO QDAY RF: 0 tramadol 50 mg Tablet 50 mg PO QID RF: 0 tamsulosin 0.4 mg Capsule 0.4 mg PO QDAY RF: 0 baclofen 10 mg Tablet 10 mg PO QDAY RF: 0 pantoprazole 40 mg Tablet,Delayed Release (Dr/Ec) 40 mg PO Q48 RF: 0 montelukast 10 mg Tablet 10 mg PO QDAY RF: 0 lisinopril 5 mg Tablet 5 mg PO QDAY RF: 0 furosemide 20 mg Tablet 20 mg PO QAM RF: 0 rosuvastatin 5 mg Tablet 5 mg PO QDAY RF: 0 Arnuity Ellipta 200 mcg/actuation Blister With Device 1 inh INHALATION QDAY RF: 0 Stiolto Respimat 2.5-2.5 mcg/actuation Mist 2 puff INHALATION QDAY RF: 0 Follow Up Plan Follow up with: Tyrel Hannon MD [Physician] - (office f/u in 2 weeks) Patient Disposition: Home, Self-Care Prognosis: Good Rehab Potential: Good I certify that the patient requires SNF services: No Overall status at discharge: patient is progressing back to baseline Discharge Orders: Discharge Order (Routine); Ordered 09/28/20 Ordered By: Tyrel Hannon Pending Pending Pending: Resuscitation Status Full Code Diet Regular Diet Start SatSeptember 27 08 Baclofen (Baclofen 10 Mg Tablet) 10 mg PO QDAY [facility] Admin: 09/28/20 08:39 Dose: 10 mg Documented by: Admin: 09/27/20 08:47 Dose: 10 mg Documented by: JUSTEN Docusate Sodium (Docusate Sodium 100 Mg Capsule) 100 mg PO BID [facility] Admin: 09/28/20 08:38 Dose: 100 mg Documented by: Admin: 09/27/20 20:57 Dose: 100 mg Documented by: Admin: 09/27/20 08:47 Dose: 100 mg Documented by: Admin: 09/26/20 21:25 Dose: 100 mg Documented by: Admin: 09/26/20 07:51 Dose: Not Given Documented by: Admin: 09/25/20 21:59 Dose: Not Given Documented by: MARTY Famotidine (Famotidine/Pf 20 Mg/2 Ml Vial) 20 mg IV Q12 [facility] Last Admin: 09/28/20 08:39 Dose: 20 mg Documented by: Admin: 09/27/20 20:57 Dose: 20 mg Documented by: Admin: 09/27/20 08:48 Dose: 20 mg Documented by: Admin: 09/26/20 21:25 Dose: 20 mg Documented by: Admin: 09/26/20 08:34 Dose: 20 mg Documented by: Admin: 09/26/20 00:17 Dose: 20 mg Documented by: MARTY Fexofenadine HCl (Fexofenadine 180 Mg Tablet) 180 mg PO DAILY [facility] Admin: 09/28/20 08:38 Dose: 180 mg Documented by: Admin: 09/27/20 08:49 Dose: Not Given Documented by: Admin: 09/26/20 21:27 Dose: 180 mg Documented by: MARTY Hydromorphone HCl (Hydromorphone 1 Mg/Ml Syringe) 1 mg IV Q2HP PRN; Protocol PRN Reason: Per Pain Protocol Last Admin: 09/28/20 11:42 Dose: 1 mg Documented by: Admin: 09/28/20 08:47 Dose: 1 mg Documented by: Admin: 09/28/20 05:43 Dose: 1 mg Documented by: Admin: 09/28/20 03:43 Dose: 1 mg Documented by: Admin: 09/28/20 00:50 Dose: 1 mg Documented by: Admin: 09/27/20 21:02 Dose: 1 mg Documented by: Admin: 09/27/20 17:34 Dose: 1 mg Documented by: Admin: 09/27/20 14:34 Dose: 1 mg Documented by: Admin: 09/27/20 11:34 Dose: 1 mg Documented by: Admin: 09/27/20 04:32 Dose: 1 mg Documented by: Admin: 09/26/20 17:25 Dose: 1 mg Documented by: Admin: 09/26/20 10:52 Dose: 1 mg Documented by: Admin: 09/26/20 08:38 Dose: 1 mg Documented by: Admin: 09/26/20 05:02 Dose: 1 mg Documented by: Admin: 09/26/20 03:08 Dose: 1 mg Documented by: Admin: 09/26/20 00:17 Dose: 1 mg Documented by: Admin: 09/25/20 20:36 Dose: 1 mg Documented by: MARTY Acetaminophen ([facility]) 1,000 mg in 100 mls @ 200 mls/hr IV Q6HP PRN; Protocol PRN Reason: PAIN/FEVER > 101 Last Infusion: 09/27/20 02:31 Dose: 0 mls/hr Documented by: Admin: 09/27/20 01:54 Dose: 200 mls/hr Documented by: Infusion: 09/26/20 13:23 Dose: 0 mls/hr Documented by: Admin: 09/26/20 12:04 Dose: 100 mls/hr Documented by: Infusion: 09/26/20 04:55 Dose: 0 mls/hr Documented by: Admin: 09/26/20 04:13 Dose: 100 mls/hr Documented by: Infusion: 09/25/20 21:59 Dose: 0 mls/hr Documented by: Admin: 09/25/20 20:30 Dose: 200 mls/hr Documented by: MARTY Sodium Chloride (Sodium Chloride 0.9%) 1,000 mls @ 100 mls/hr IV .Q10H [facility] Last Admin: 09/28/20 03:40 Dose: 100 mls/hr Documented by: Infusion: 09/28/20 02:43 Dose: 100 mls/hr Documented by: Admin: 09/28/20 00:49 Dose: Not Given Documented by: Admin: 09/27/20 16:43 Dose: 100 mls/hr Documented by: Infusion: 09/27/20 14:36 Dose: 100 mls/hr Documented by: Admin: 09/27/20 04:36 Dose: 100 mls/hr Documented by: Infusion: 09/27/20 03:24 Dose: 100 mls/hr Documented by: Admin: 09/26/20 17:24 Dose: 100 mls/hr Documented by: Infusion: 09/26/20 17:24 Dose: 100 mls/hr Documented by: Admin: 09/26/20 08:33 Dose: 100 mls/hr Documented by: Infusion: 09/26/20 06:31 Dose: 100 mls/hr Documented by: Admin: 09/25/20 20:31 Dose: 100 mls/hr Documented by: MARTY Piperacillin Sod/Tazobactam (Sod 3.375 gm/ Dextrose) 50 mls @ 100 mls/hr IV Q6H [facility]; Protocol Last Admin: 09/28/20 11:42 Dose: 100 mls/hr Documented by: Infusion: 09/28/20 06:02 Dose: 0 mls/hr Documented by: Admin: 09/28/20 05:38 Dose: 100 mls/hr Documented by: Infusion: 09/28/20 01:16 Dose: 0 mls/hr Documented by: Admin: 09/28/20 00:05 Dose: 100 mls/hr Documented by: Infusion: 09/27/20 18:37 Dose: 0 mls/hr Documented by: Admin: 09/27/20 17:33 Dose: 100 mls/hr Documented by: Infusion: 09/27/20 12:54 Dose: 0 mls/hr Documented by: Admin: 09/27/20 11:59 Dose: 100 mls/hr Documented by: Infusion: 09/27/20 05:58 Dose: 0 mls/hr Documented by: Admin: 09/27/20 05:34 Dose: 100 mls/hr Documented by: Infusion: 09/27/20 00:15 Dose: 0 mls/hr Documented by: Admin: 09/26/20 23:41 Dose: 100 mls/hr Documented by: Infusion: 09/26/20 18:27 Dose: 0 mls/hr Documented by: Admin: 09/26/20 17:26 Dose: 100 mls/hr Documented by: Infusion: 09/26/20 13:27 Dose: 0 mls/hr Documented by: Admin: 09/26/20 11:54 Dose: 100 mls/hr Documented by: Infusion: 09/26/20 06:32 Dose: 0 mls/hr Documented by: Admin: 09/26/20 05:27 Dose: 100 mls/hr Documented by: Infusion: 09/26/20 00:43 Dose: 0 mls/hr Documented by: Admin: 09/26/20 00:07 Dose: 100 mls/hr Documented by: MARTY Lisinopril (Lisinopril 5 Mg Tablet) 5 mg PO QDAY [facility] Last Admin: 09/28/20 08:40 Dose: 5 mg Documented by: Admin: 09/27/20 08:47 Dose: 5 mg Documented by: JUSTEN Montelukast Sodium (Montelukast 10 Mg Tablet) 10 mg PO QDAY [facility] Last Admin: 09/28/20 08:39 Dose: 10 mg Documented by: Admin: 09/27/20 08:47 Dose: 10 mg Documented by: JUSTEN Pantoprazole Sodium (Pantoprazole 40 Mg Tablet) 40 mg PO Q48H [facility] Last Admin: 09/27/20 07:06 Dose: 40 mg Documented by: JUSTEN Promethazine HCl (Promethazine 25 Mg/Ml Vial) 12.5 mg IV Q6HP PRN PRN Reason: Nausea And Vomiting Last Admin: 09/26/20 01:04 Dose: 12.5 mg Documented by: MARTY Senna (Sennosides 1 Tablet) 2 tab PO HS [facility] Last Admin: 09/27/20 20:57 Dose: 2 tab Documented by: Admin: 09/26/20 21:25 Dose: 2 tab Documented by: Admin: 09/25/20 21:59 Dose: Not Given Documented by: MARTY Sodium Chloride (0.9 % Sodium Chloride 10 Ml Syringe) 10 ml IV Q8 [facility] Last Admin: 09/28/20 04:38 Dose: Not Given Documented by: Admin: 09/27/20 20:58 Dose: Not Given Documented by: Admin: 09/27/20 15:49 Dose: Not Given Documented by: Admin: 09/27/20 05:35 Dose: Not Given Documented by: Admin: 09/26/20 22:30 Dose: Not Given Documented by: MARTY Tamsulosin HCl (Tamsulosin 0.4 Mg Capsule) 0.4 mg PO QDAY [facility] Last Admin: 09/28/20 08:38 Dose: 0.4 mg Documented by: Admin: 09/27/20 08:47 Dose: 0.4 mg Documented by: JUSTEN Tramadol HCl (Tramadol 50 Mg Tablet) 50 mg PO QID [facility]; Protocol Last Admin: 09/28/20 08:39 Dose: 50 mg Documented by: Admin: 09/27/20 20:57 Dose: 50 mg Documented by: Admin: 09/27/20 17:32 Dose: 50 mg Documented by: Admin: 09/27/20 12:00 Dose: 50 mg Documented by: Admin: 09/27/20 08:47 Dose: 50 mg Documented by: Admin: 09/26/20 21:25 Dose: 50 mg Documented by: Admin: 09/26/20 17:25 Dose: 50 mg Documented by: JUSTEN Trazodone HCl (Trazodone Hcl 50 Mg Tablet) 50 mg PO QHS [facility] Last Admin: 09/27/20 20:57 Dose: 50 mg Documented by: Admin: 09/26/20 21:25 Dose: 50 mg Documented by: MARTY Shift Summary 09/28/20 04:18 Shift Summary by Norma David Patient is an 84-year-old male with history of prior coronary artery bypass grafting and stenting as well as history of bowel obstruction who presents complaint of right-sided abdominal pain which is persistent without any relieving or exacerbating factors. He has felt some nausea but no vomiting. He denies any trauma to the abdomen. He is extremely uncomfortable with the severe pain. He notes chronic back pain without any new back pain. He has been taking his medications including Plavix consistently. No complaint of any new pain or swelling to his legs which she notes are with some mild edema. No skin rash no fever. He was concerned maybe it was something that he had eaten, but no one else with similar symptoms. No recent travel no fever no cough. Pt is A&Ox4 using call light. Pt is up at mor in room. Dressing to abd with shadow drainage. MARGARITA with 60mls out which is now a greenish yellow color. Please make Dr. Hannon aware of this. Pt is taking Dilaudid 1mg for pain. No PO pain meds available at night time if pt does not discharge please address this with Dr. Hannon. Receives scheduled tramadol during the day. Pt has MIV infusing at 100mls/hr and Zosyn Q6hrs. Pt has red merritt area and some scattered scabs, but no other skin issues. Will update with verbal report. Initialized on 09/28/20 04:18 - END OF NOTE
== END 2020-09-28 14:35 | disposition home or self-care (01) | DRG 416 ==
LOC: MEDSUR 13:49 → ED 13:49 → MEDSUR 18:21
PROVIDERS: ADMIT Family Medicine Adult Medicine; ATTEND Family Medicine Adult Medicine